=== PATIENT | female | born 1960 | race Caucasian/White ===

== ENCOUNTER 2016-05-15 06:02 | Day surgery (SDC) | payer OTHER ==
[~2016-05-15 06:02] MED LIST: IV START KIT ONE; LACTATED RINGERS 1,000 ML ONE
[2016-05-15] MEDS ORDERED: MIDAZOLAM HCL 5 MG/5 ML VIAL ONE (06:43)
[2016-05-15] MEDS ORDERED: FENTANYL 0 ML ONE (06:44)
[2016-05-15] MEDS ORDERED: PROPOFOL 20 ML IV ONE ×3 (07:12→07:58)
[2016-05-15] MEDS ORDERED: SODIUM CHLORIDE 0.9% FLUSH 10 ML ONE (08:09)
== END 2016-05-15 09:21 | disposition home or self-care (01) ==
LOC: SDC 06:02
PROVIDERS: ATTEND Family Medicine
PROC: 0DBN8ZX Excision of Sigmoid Colon, Via Natural or Artificial Opening Endoscopic, Diagnostic (ICD-10-PCS; principal; 2016-05-15)
PROC: 0DBN8ZX Excision of Sigmoid Colon, Via Natural or Artificial Opening Endoscopic, Diagnostic (ICD-10-PCS; 2016-05-15)
PROC: 0DBN8ZX Excision of Sigmoid Colon, Via Natural or Artificial Opening Endoscopic, Diagnostic (ICD-10-PCS; 2016-05-15)
DX: Z12.11 Encounter for screening for malignant neoplasm of colon (principal); D12.5 Benign neoplasm of sigmoid colon
CPT/HCPCS: 45384; 45380; J7120